=== PATIENT | female | born 1985 | race Two or more races ===

== ENCOUNTER 2016-09-19 11:24 | Emergency (ER) | payer OTHER ==
[2016-09-19 11:33] VITALS: BP 150/104; PULSE 87; TEMP 99.1; BMI 43.8
[2016-09-19] MEDS ORDERED: ALBUTEROL SO4 0.083% IH SOL 2.5 MG/3 ML VIAL.NEB. NEB ONE ×2 (11:51→11:54)
--- NOTE | 2016-09-19 11:54 | PDOC ---
History of Present Illness - General Chief Complaint: Hemoptysis Stated Complaint: COUGHING UP BLOOD Time Seen by Provider: 09/19/16 11:27 History Source: Patient Exam Limitations: No Limitations - History of Present Illness Initial Comments: 09/19/16 11:52 31-year-old female with past medical history of asthma presents with coughing for one week. Denies sick contacts or recent travels. She reports that she been having this all productive cough and noted today that she developed some small amount streaking. She reports some chest discomfort with coughing. Denies fevers or chills. 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 Her last PPD is negative. Otherwise, no other TB risk factors. Past History - Past Medical History Allergies/Adverse Reactions: Allergies Allergy/AdvReac Type Severity Reaction Status Date / Time amoxicillin AdvReac Unknown Verified 09/19/16 11:27 Penicillins AdvReac Hives Verified 09/19/16 11:27 Home Medications: Ambulatory Orders Albuterol Sulfate Inhaler - [Ventolin HFA Inhaler -] 1 - 2 inh PO Q4H PRN #1 inhaler 09/19/16 Albuterol Sulfate Inhaler - [Ventolin Hfa Inhaler -] 1 - 2 inh PO PRN PRN Azithromycin 250 mg PO DAILY #4 tablet 09/19/16 Guaifenesin [Mucinex -] 0 mg PO BID 09/19/16 Asthma: Yes - Surgical History Appendectomy: Yes - Psycho/Social/Smoking Cessation Hx Anxiety: No Suicidal Ideation: No Smoking History: Current some day smoker Number of Cigarettes Smoked Daily: 1 Information on smoking cessation initiated: No Hx Alcohol Use: Yes (SOCIALLY) Drug/Substance Use Hx: No Substance Use Type: None Review of Systems - Review of Systems Able to Perform ROS?: Yes Comments:: 09/19/16 11:53 GENERAL/CONSTITUTIONAL: No fever, weakness. HEAD, EYES, EARS, NOSE AND THROAT: No change in vision. No ear pain or discharge. No sore throat. CARDIOVASCULAR: No chest pain or shortness of breath. RESPIRATORY: Coughing GASTROINTESTINAL: No abdominal pain, nausea, vomiting, diarrhea, or decreased PO intolerance. GENITOURINARY: No dysuria, frequency, or change in urination. MUSCULOSKELETAL: No joint or muscle swelling or pain. No neck or back pain. SKIN: No rash NEUROLOGIC: No headache, vertigo, loss of consciousness, or change in strength/ sensation. ENDOCRINE: No increased thirst. No abnormal weight change. HEMATOLOGIC/LYMPHATIC: No anemia, easy bleeding, or history of blood clots. ALLERGIC/IMMUNOLOGIC: No hives or skin allergy. *Physical Exam - Vital Signs Last Vital Signs Temp Pulse Resp BP Pulse Ox 99.1 F 87 18 150/104 99 09/19/16 11:25 09/19/16 11:09/19/16 11:09/19/16 11:09/19/16 11:25 - Physical Exam Comments: 09/19/16 11:53 GENERAL: Awake, alert, and fully oriented, in no acute distress. HEAD: No signs of trauma EYES: PERRLA, EOMI, sclera anicteric, conjunctiva clear ENT: Auricles normal inspection, hearing grossly normal, nares patent, oropharynx clear without exudates. NECK: Normal ROM, supple, no lymphadenopathy, JVD, or masses LUNGS: Breath sounds equal, clear to auscultation bilaterally. No wheezes, and no crackles. When coughing, some scant wheezing b/l HEART: Regular rate and rhythm, normal S1 and S2, no murmurs, rubs or gallops ABDOMEN: Soft, nontender, normoactive bowel sounds. No guarding, no rebound. No masses EXTREMITIES: Normal range of motion, no edema. No clubbing or cyanosis. No cords, erythema, or tenderness NEUROLOGICAL: Cranial nerves II through XII grossly intact. Normal speech, normal gait SKIN: Warm, Dry, normal turgor, no rashes or lesions noted. ED Treatment Course - RADIOLOGY Radiology Studies Ordered: Category Date Time Status CHEST PA & LAT [RAD] Stat Radiology 09/19/16 11:51 Ordered Medical Decision Making - Medical Decision Making 09/19/16 11:54 Vital Signs Temp Pulse Resp BP Pulse Ox 99.1 F 87 18 150/104 99 09/19/16 11:25 09/19/16 11:25 09/19/16 11:09/19/16 11:09/19/16 11:25 I suspect that this is likely bronchitis. We'll obtain a chest x-ray to rule out other etiologies. Chest x-ray unremarkable, we'll initiate azithromycin. Albuterol when necessary for wheezing as needed. Follow-up with primary care physician. 09/19/16 12:44 Chest xray reviewed. No infiltrates. Will treat as bronchitis. I discussed the physical exam findings, ancillary test results and final diagnoses with the patient. I answered all of the patient's questions. The patient was satisfied with the care received and felt comfortable with the discharge plan and treatment plan. The patient will call their primary care physician within 24 hours to arrange follow-up and will return to the Emergency Department with any new, persistant or worsening symptoms. *DC/Admit/Observation/Transfer Diagnosis at time of Disposition: Bronchitis - Discharge Dispostion Disposition: HOME Condition at time of disposition: Stable Admit: No - Prescriptions Prescriptions: Azithromycin 250 mg PO DAILY #4 tablet Albuterol Sulfate Inhaler - [Ventolin HFA Inhaler -] 1 - 2 inh PO Q4H PRN #1 inhaler PRN Reason: Wheezing - Patient Instructions Printed Discharge Instructions: DI for Acute Bronchitis Additional Instructions: Take the azithromycin as prescribed. Take 1 to 2 puffs of albuterol every 4 hours as needed for wheezing. Your chest xray shows no findings.
[2016-09-19] MEDS ORDERED: AZITHROMYCIN 250 MG TABLET (FP) PO ONE (12:44)
[2016-09-19] MEDS ORDERED: AZITHROMYCIN 250 MG TABLET (FP) ONE (12:56)
== END 2016-09-19 13:05 | disposition home or self-care (01) ==
LOC: FER 11:24
PROC: 3E0F7GC Introduction of Other Therapeutic Substance into Respiratory Tract, Via Natural or Artificial Opening (ICD-10-PCS; principal; 2016-09-19)
DX: J20.9 Acute bronchitis, unspecified (principal); J45.909 Unspecified asthma, uncomplicated; Z72.0 Tobacco use
CPT/HCPCS: 71020-TC; 84703; 99281-25

== ENCOUNTER 2019-01-30 20:50 | Emergency (ER) | payer OTHER ==
--- NOTE | 2019-01-30 21:04 | PDOC ---
Rapid Medical Evaluation Time Seen by Provider: 01/30/19 21:01 Medical Evaluation: Allergies Allergy/AdvReac Type Severity Reaction Status Date / Time amoxicillin AdvReac Unknown Verified 09/19/16 11:27 Penicillins AdvReac Hives Verified 09/19/16 11:27 01/30/19 21:01 Patient presents to ED with complaints of: rt foot pain after stepping wrong on the foot patient on brief exam: no visable injury, n mild tenderness to lat aspect of rt foot and 5th toe Patient ordered for: foot xray Patient to proceed to the ED Discharge Disposition - Diagnosis Foot pain, Sprain of foot, right - Discharge Dispostion Disposition: HOME Condition at time of disposition: Stable - Referrals Referrals: Nir Chambers MD [Staff Physician] - Michelle Langford MD [Primary Care Provider] - - Patient Instructions Additional Instructions: You may weight bear as tolerated with the use of the hard sole shoe and crutches. Return to the emergency room should symptoms worsen. And, without fail , please follow up with orthopedic surgery in 1-2 days for further evaluation and treatment options. Tylenol as directed for pain - Post Discharge Activity
[2019-01-30 21:13] VITALS: BP 139/89; PULSE 85; TEMP 98.3; BMI 46.7
--- NOTE | 2019-01-30 22:02 | PDOC ---
History of Present Illness - General Chief Complaint: Pain Stated Complaint: RIGHT FOOT PAIN Time Seen by Provider: 01/30/19 21:01 - History of Present Illness Initial Comments: 01/30/19 21:57 33 y/o F w/GERD from hiatal hernia presents for evaluation of atraumatic R foot pain which started today when walking Past History - Past Medical History Allergies/Adverse Reactions: Allergies Allergy/AdvReac Type Severity Reaction Status Date / Time amoxicillin AdvReac Unknown Verified 01/30/19 21:13 Penicillins AdvReac Hives Verified 01/30/19 21:13 Home Medications: Ambulatory Orders NK [No Known Home Medication] 01/30/19 Asthma: Yes COPD: No - Surgical History Appendectomy: Yes - Suicide/Smoking/Psychosocial Hx Smoking History: Never smoked Number of Cigarettes Smoked Daily: 1 Hx Alcohol Use: Yes (SOCIALLY) Drug/Substance Use Hx: No Substance Use Type: None Review of Systems - Review of Systems Musculoskeletal: Yes: See HPI, Joint Pain *Physical Exam - Vital Signs Last Vital Signs Temp Pulse Resp BP Pulse Ox 98.3 F 85 18 139/89 98 01/30/19 21:12 01/30/19 21:12 01/30/19 21:12 01/30/19 21:12 01/30/19 21:12 - Physical Exam Comments: 01/30/19 21:58 R foot skin color and temperature are normal. There is full non painful ROM of the ankle, tenderness about the 2nd and 3rd MTTJ no other areas of tenderness no gross sensory or motor deficits nvid Medical Decision Making - Medical Decision Making 01/30/19 21:59 no fx on [facility]ograph [facility] MTT sprain 3 weeks s/p L knee arthroscopy *DC/Admit/Observation/Transfer Diagnosis at time of Disposition: Foot pain, Sprain of foot, right - Discharge Dispostion Disposition: HOME Condition at time of disposition: Stable Decision to Admit order: No - Referrals Referrals: Michelle Langford MD [Primary Care Provider] - Nir Chambers MD [Staff Physician] - - Patient Instructions Additional Instructions: You may weight bear as tolerated with the use of the hard sole shoe and crutches. Return to the emergency room should symptoms worsen. And, without fail , please follow up with orthopedic surgery in 1-2 days for further evaluation and treatment options. Tylenol as directed for pain - Post Discharge Activity
== END 2019-01-30 22:11 | disposition home or self-care (01) ==
LOC: JERFT 20:50
DX: S93.691A Other sprain of right foot, initial encounter (principal); X50.1XXA Overexertion from prolonged static or awkward postures, initial encounter; Y93.01 Activity, walking, marching and hiking; Y92.89 Other specified places as the place of occurrence of the external cause; Y99.8 Other external cause status
CPT/HCPCS: 73630-TC-RT-FY; 99281-25

== ENCOUNTER 2020-11-30 11:19 | Emergency (ER) | payer OTHER ==
[2020-11-30 11:31] VITALS: BP 137/97; PULSE 83; TEMP 98; BMI 45.1
[2020-11-30] MEDS ORDERED: DIPHTH,PERTUSS(ACELL),TET 0.5 ML DISP.SYRIN IM ONE ×2 (11:39→11:41)
[2020-11-30] MEDS ORDERED: IBUPROFEN 600 MG TABLET (FP) PO ONE ×2 (11:39→11:41)
== END 2020-11-30 11:48 | disposition home or self-care (01) ==
LOC: JERFT 11:19
PROC: 3E0234Z Introduction of Serum, Toxoid and Vaccine into Muscle, Percutaneous Approach (ICD-10-PCS; principal; 2020-11-30)
DX: R20.2 Paresthesia of skin (principal)
CPT/HCPCS: 90715; 99284-25